=== PATIENT | female | born 2000 | race Two or more races ===

== ENCOUNTER 2021-03-03 16:22 | Emergency (ER) | payer MEDICAID ==
--- NOTE | 2021-03-03 17:12 | EDM.PDOC ---
ED HPI GENERAL MEDICAL PROBLEM - General Chief Complaint: Genitourinary Problem Stated Complaint: POSSIBLE UTI Time Seen by Provider: 03/03/21 16:44 Source of Information: Reports: Patient History Limitations: Reports: No Limitations - History of Present Illness INITIAL COMMENTS - FREE TEXT/NARRATIVE: HISTORY AND PHYSICAL: History of present illness: The patient is a 20-year-old female who presents to the emergency room with slight dysuria for 1 week. She denies any hematuria but states that her urine is cloudy. She denies any vaginal discharge, however, does state that she has some irritation and itchiness. She has had some nausea. The patient states the last time she had anything like this it was bleeding. The patient denies any fever, chills, headache, change in vision, syncope or near syncope. Denies any chest pain, back pain, shortness of breath or cough. Denies any abdominal pain, vomiting, diarrhea, constipation or dysuria. Has not noted any blood in urine or stool. Patient has been eating and drinking appropriately. In the emergency room the patient is hemodynamically stable with a pulse of 72 and a blood pressure of 134/92. She is not in any respiratory distress with a respiration rate of 20 and an SPO2 of 97%. She is afebrile with a temperature of 97.6. The patient is hemodynamically stable with a pulse of 72 and a blood pressure of 134/92. She is afebrile with a temperature of 97.6. Review of systems: As per history of present illness and below otherwise all systems reviewed and negative. Past medical history: As per history of present illness and as reviewed below otherwise noncontributory. Surgical history: As per history of present illness and as reviewed below otherwise noncontributory. Social history: See social history for further information Family history: As per history of present illness and as reviewed below otherwise noncontributory. Physical exam: General: Well developed and well nourished. Alert and orientated x 3. Nontoxic in appearance and in no acute distress. Vital signs are stable and have been reviewed by me. Nursing notes were reviewed. HEENT: Atraumatic, normocephalic, pupils equal and reactive bilaterally, negative for conjunctival pallor or scleral icterus, mucous membranes moist, TMs normal bilaterally, throat clear, neck supple, nontender, trachea midline. No drooling or trismus noted. No meningeal signs. No hot potato voice noted. Lungs: Clear to auscultation bilaterally. No wheezes, rales, or rhonchi. Chest nontender. Normal work of breathing, no accessory muscles used. Heart: S1S2, regular rate and rhythm without overt murmur, gallops, or rubs. No JVD. No peripheral edema Abdomen: Soft, nondistended, nontender. Normoactive bowel sounds. Negative for masses or costovertebral tenderness. Genitourinary: External genitalia WNL. Cervix pink. Pepe white thin vaginal discharge noted. Skin: Intact, warm, dry. No lesions or rashes noted. Hematologic: No petechiae or purpra. Mucosa appropriate color and normal nail bed color and refill. Extremities: Atraumatic, moves all extremities per self without difficulty or deficits, negative for cords or calf pain. Neurovascular unremarkable. Neuro: Awake, alert, oriented. Cranial nerves II through XII unremarkable. Cerebellum unremarkable. Motor and sensory unremarkable throughout. Exam nonfocal. Psychiatric: Mood and affect are appropriate. Normal thought process. Answering questions appropriately. Notes: *This patient was seen and evaluated during the 2019 SARS-CoV-2 novel coronavirus pandemic period. Community viral transmission is ongoing at time of this encounter and the emergency department is operating under pandemic response procedures. As stated above the patient states that she is not having any vaginal discharge and slight dysuria. She states this is as per her previous bacterial vaginosis. I will do a vaginal exam and obtain a urinalysis. The patient's urinalysis is unremarkable for infection. Vaginal exam performed with RN at bedside. Patient was educated on the vaginal exam and tolerated the procedure well. Her vaginal exam had moderate amount white discharge. I obtained STD testing. I will treat the patient for bacterial vaginosis with Flagyl 500 mg twice daily for 7 days. I have talked with the patient about today's findings, in addition to providing specific details for plan of care. Reassessment at the time of disposition demonstrates that the patient is in no acute distress. The patient is stable for discharge, counseling was provided and we discussed in great detail signs and symptoms that would prompt them to return to the Emergency Department. Medication, follow up and supportive care measures were reviewed and discussed. Voices understanding and is agreeable to plan of care. Denies any further questions or concerns at this time. Diagnostics: UA, swabs for chlamydia/gonorrhea, swab for trichomoniasis/GERD/cand Prescription: Flagyl 500 mg twice daily for 7 days Impression: Bacterial vaginosis Plan: 1. You were evaluated today on an emergent basis. Your complaints of burning with urination and vaginal itchiness was evaluated with a urinalysis and a vaginal exam. I will treat you for a bacterial vaginosis with Flagyl 500 mg twice daily for 7 days. Do not drink alcohol with Flagyl as it can cause vomiting. We collected STD testing which we will call you back if positive. You will not receive a phone call if the test results are negative. You may call the medical records department to obtain the results. 2. You can alternate Tylenol and ibuprofen as needed for pain and fever management. 3. We encourage you to follow up with your primary care provider and/or recommended specialist in the next few days for re-evaluation and further car e/management. 4. If your symptoms should worsen, new symptoms develop or any of the signs and symptoms we discussed should arise please return to the emergency room or call 911 (if needed). Definitive disposition and diagnosis as appropriate pending reevaluation and review of above. vaginal Pain Score (Numeric/FACES): 2 - Related Data Allergies Allergy/AdvReac Type Severity Reaction Status Date / Time No Known Allergies Allergy Verified 03/03/21 16:42 Home Meds: Home Meds metroNIDAZOLE [Flagyl] 500 mg PO BID 7 Days #14 tablet 03/03/21 [Rx] Past Medical History - Past Health History Medical/Surgical History: Denies Medical/Surgical History HEENT History: Reports: None Cardiovascular History: Reports: None Respiratory History: Reports: None Gastrointestinal History: Reports: None Genitourinary History: Reports: None [employer] History: Reports: None Musculoskeletal History: Reports: None Neurological History: Reports: None Psychiatric History: Reports: None Endocrine/Metabolic History: Reports: None Hematologic History: Reports: None Immunologic History: Reports: None Oncologic (Cancer) History: Reports: None Dermatologic History: Reports: None - Infectious Disease History Infectious Disease History: Reports: None - Past Surgical History Head Surgeries/Procedures: Reports: None Social & Family History - Family History Family Medical History: No Pertinent Family History - Tobacco Use Tobacco Use Status *Q: Current Every Day Tobacco User Years of Tobacco use: 5 Packs/Tins Daily: 0.2 - Caffeine Use Caffeine Use: Reports: Coffee - Recreational Drug Use Recreational Drug Use: No ED ROS GENERAL - Review of Systems Review Of Systems: Comprehensive ROS is negative, except as noted in HPI. ED EXAM, RENAL/ - Physical Exam Exam: See Below (See dictation) Course - Vital Signs Last Recorded V/S: Last Vital Signs Temp 97.6 F 03/03/21 16:37 Pulse 77 03/03/21 16:37 Resp 20 03/03/21 16:37 BP 134/92 H 03/03/21 16:37 Pulse Ox 97 03/03/21 16:37 - Orders/Labs/Meds Orders: Active Orders 24 hr Category Date Time Status CHLAMYDIA AND GONORRHEA BY TMA Stat Lab 03/03/21 17:15 Received TRICH/CARA/CAND BY DNA PROBE [MOLEC] Stat Lab 03/03/21 17:15 Received Labs: Laboratory Tests 03/03/21 Range/Units 16:50 Urine Color YELLOW Urine Appearance HAZY Urine pH 5.5 (5.0-8.0) Ur Specific [place] >= 1.030 (1.001-1.035) Urine Protein NEGATIVE (NEGATIVE) mg/dL Urine Glucose (UA) NEGATIVE (NEGATIVE) mg/dL Urine Ketones TRACE H (NEGATIVE) mg/dL Urine Occult Blood TRACE-INTACT H (NEGATIVE) Urine Nitrite NEGATIVE (NEGATIVE) Urine Bilirubin NEGATIVE (NEGATIVE) Urine Urobilinogen 0.2 (<2.0) EU/dL Ur Leukocyte Esterase NEGATIVE (NEGATIVE) Urine RBC 0-2 (0-2/HPF) Urine WBC 0-1 (0-5/HPF) Ur Epithelial Cells FEW (NONE-FEW) Urine Bacteria FEW (NEGATIVE) Departure - Departure Time of Disposition: 17:28 Disposition: Home, Self-Care 01 Condition: Good Clinical Impression: Bacterial vaginosis - Discharge Information *PRESCRIPTION DRUG MONITORING PROGRAM REVIEWED*: Not Applicable *COPY OF PRESCRIPTION DRUG MONITORING REPORT IN PATIENT LEXI: Not Applicable Prescriptions: metroNIDAZOLE [Flagyl] 500 mg PO BID 7 Days #14 tablet Instructions: Bacterial Vaginosis Referrals: PCP,None [Primary Care Provider] - Forms: ED Department Discharge Additional Instructions: The following information is given to patients seen in the emergency department who are being discharged to home. This information is to outline your options for follow-up care. We provide all patients seen in our emergency department with a follow-up referral. The need for follow-up, as well as the timing and circumstances, are variable depending upon the specifics of your emergency department visit. If you don't have a primary care physician on staff, we will provide you with a referral. We always advise you to contact your personal physician following an emergency department visit to inform them of the circumstance of the visit and for follow-up with them and/or the need for any referrals to a consulting specialist. The emergency department will also refer you to a specialist when appropriate. This referral assures that you have the opportunity for follow-up care with a specialist. All of these measure are taken in an effort to provide you with optimal care, which includes your follow-up. Under all circumstances we always encourage you to contact your private physician who remains a resource for coordinating your care. When calling for follow-up care, please make the office aware that this follow-up is from your recent emergency room visit. If for any reason you are refused follow-up, please contact the [facility] Emergency Department at and asked to speak to the emergency department charge nurse. [facility] [address] [place] [address] [place] [address] Plan: 1. You were evaluated today on an emergent basis. Your complaints of burning with urination and vaginal itchiness was evaluated with a urinalysis and a vaginal exam. I will treat you for a bacterial vaginosis with Flagyl 500 mg twice daily for 7 days. Do not drink alcohol with Flagyl as it can cause vomiting. We collected STD testing which we will call you back if positive. You will not receive a phone call if the test results are negative. You may call the medical records department to obtain the results. 2. You can alternate Tylenol and ibuprofen as needed for pain and fever management. 3. We encourage you to follow up with your primary care provider and/or recommended specialist in the next few days for re-evaluation and further care/management. 4. If your symptoms should worsen, new symptoms develop or any of the signs and symptoms we discussed should arise please return to the emergency room or call 911 (if needed). Sepsis Event Note (ED) - Evaluation Sepsis Screening Result: No Definite Risk - Focused Exam Vital Signs: Vital Signs Temp Pulse Resp BP Pulse Ox 03/03/21 16:37 97.6 F 77 20 134/92 H 97 - My Orders Last 24 Hours: My Active Orders 03/03/21 17:15 CHLAMYDIA AND GONORRHEA BY TMA Stat TRICH/CARA/CAND BY DNA PROBE [MOLEC] Stat - Assessment/Plan Last 24 Hours: My Active Orders 03/03/21 17:15 CHLAMYDIA AND GONORRHEA BY TMA Stat TRICH/CARA/CAND BY DNA PROBE [MOLEC] Stat
[2021-03-05 18:03] LABS: C.TRACHOMATIS BY TMA Negative (Negative); N.GONORRHOEAE BY TMA Positive (Negative)
== END 2021-03-03 17:44 | disposition home or self-care (01) ==
LOC: MW.ED 16:22
DX: N76.0 Acute vaginitis (principal); B96.89 Other specified bacterial agents as the cause of diseases classified elsewhere; Z72.0 Tobacco use
CPT/HCPCS: 81001; 87480; 87491; 87510; 87591; 87660; 99283

== ENCOUNTER 2021-05-18 10:54 | Emergency (ER) | payer SELFPAY | END 2021-05-18 12:10 | disposition left against medical advice (07) | LOC: MW.ED 10:54 | DX: R10.9 Unspecified abdominal pain (principal); Z53.21 Procedure and treatment not carried out due to patient leaving prior to being seen by health care provider ==